=== PATIENT | female | born 1985 | race Caucasian/White ===

== ENCOUNTER → 2019-08-16 | Outpatient (CLI) | payer OTHER ==
--- NOTE | 2019-08-16 18:44 | RADIOLOGY REPORT (SQ) ---
EXAM DESCRIPTION: U/S THYROID/SFT TISS HD NECK COMPLETED DATE/TIME: 08/16/2019 5:41 pm REASON FOR STUDY: L98.9 DISORDER OF THE SKIN AND SUBCUTANEOUS TISSUE, UNSPECIFIED L98.9 DISORDER OF THE SKIN AND SUBCUTANEOUS TISSUE, UNSPECIF COMPARISON: None. TECHNIQUE: Dynamic and static grayscale images acquired of the localized site of clinical concern an d recorded on PACS. Additional selected color Doppler and spectral images recorded. SITE OF CONCERN: Supraclavicular area. LIMITATIONS: None. FINDINGS: Sonographic imaging in the area of concern shows what appears to be a 12 mm lymph node. T here is a fatty hilum. IMPRESSION: Small lymph node in the area of concern. TECHNICAL DOCUMENTATION: JOB ID: [id number] 2004 [employer]- All Rights Reserved Reading location - IP/workstation name: [email or web address]
== END ==
LOC: RAD 16:17
PROVIDERS: ATTEND Internal Medicine
DX: L98.9 Disorder of the skin and subcutaneous tissue, unspecified (principal)
CPT/HCPCS: 76536

== ENCOUNTER 2019-08-17 08:26 | Day surgery (SDC) | payer OTHER ==
[~2019-08-17 08:26] MED LIST: PROPOFOL INJ 200 MG/20 ML VIAL IV ONE
--- NOTE | 2019-08-17 09:49 | Operative Report ---
Operative Report DATE OF SURGERY: 08/17/19 Operative Report: The risks benefits and alternatives of the procedure explained to the patient in detail and informed consent is obtained.A GIF Olympus video scope was inserted into the patient's mouth and hypopharynx, the esophagus is identified intubated and insufflated ,the scope was then advanced through the esophagus stomach and duodenum, retroflexion maneuver is done the esophagus stomach and first and second portions of the duodenum examined. PREOPERATIVE DIAGNOSIS: Dysphagia POSTOPERATIVE DIAGNOSIS: Duodenitis status post biopsy. Gastritis status post biopsy. No evidence of stricture or Schatzki's ring. No rings or furrows noted in the esophagus. No esophageal obstruction noted OPERATION: EGD with biopsy SURGEON: CHANEL JANE ANESTHESIA: LMAC TISSUE REMOVED OR ALTERED: As noted above COMPLICATIONS: None. ESTIMATED BLOOD LOSS: None. INTRAOPERATIVE FINDINGS: As noted above. PROCEDURE: Patient tolerated the procedure well. No immediate postprocedure complications are noted. Patient is discharged in good condition. Discharge date 08/17/2019. Discharge diet: Regular. Discharge activity: Regular. 2 to 3-week follow-up to discuss findings. Patient is instructed to call the office or proceed to the emergency room should there be any further questions. Wait on the pathology.
[2019-08-17 10:12] VITALS: BP 112/75
== END 2019-08-17 10:23 | disposition home or self-care (01) ==
LOC: END 08:26
PROVIDERS: ATTEND Internal Medicine Gastroenterology
DX: K29.50 Unspecified chronic gastritis without bleeding (principal); K29.80 Duodenitis without bleeding
CPT/HCPCS: 43239; 88305 ×2; J2704; 731